=== PATIENT | male | born 1970 | race Caucasian/White ===

== ENCOUNTER 2018-04-20 19:36 | Emergency (ER) | payer OTHER ==
--- NOTE | 2018-04-20 19:48 | ER Report ---
History and Physical Time Seen By MD: 19:47 HPI/ROS CHIEF COMPLAINT: leg pain and swelling HISTORY OF PRESENT ILLNESS: This is a 47 year old male. He is an [id number] operator. He had a lump start on his inner thigh, just above the knee a couple of days ago. Now worsening pain, also with redness and warmth. Extends down the side of his leg into the upper inside calf. Always has some leg swelling bilaterally and wears compression sleeves. He has been pulling the sleeve up to try and help with some compression over this area. Has diabetes with some neuropathy in his feet. No cough, shortness of breath, or chest pain. Allergies: Coded Allergies: Penicillins (Verified Allergy, Intermediate, 04/20/18) BEE STINGS (Verified Allergy, Unknown, 04/20/18) Home Meds Active Scripts Sulfamethoxazole/Trimet 800-160 Mg Tab (BACTRIM DS TABLET) 1 Each Tablet, 1 TAB PO Q12H, #12 TAB 0 Refills Prov:RYLAND WEIR MD 04/20/18 Reported Medications Sitagliptin Phosphate (JANUVIA) 25 Mg Tablet, 25 MG PO QDAY 04/20/18 Pregabalin (LYRICA) 200 Mg Cap, 200 MG PO BID, CAP 04/20/18 Hctz/Bisoprolol (ZIAC 10-6.25 MG TABLET) 1 Ea Tab, 1 EA PO QDAY, TAB 04/20/18 Reviewed Nurses Notes: Yes Constitutional Vital Sign - Last 24 Hours 04/20/18 04/20/18 19:48 20:02 Temp 97.5 Pulse 106 Resp 18 B/P (MAP) 136/92 (107) 136/92 Pulse Ox 94 Physical Exam General Appearance: The patient is alert, has no immediate need for airway protection and no current signs of toxicity. Eyes: Pupils equal and round no injection. ENT: Normal oral mucosa. Moist mucous membranes. Respiratory: Chest is non tender, lungs are clear to auscultation. Cardiac: regular rate and rhythm Neuro: neuropathy in feet, but normal on leg. Musculoskeletal: Has some tenderness over the inner thigh, but no joint or muscle tenderness otherwise. Skin: Redness and warmth and pain with palpation over inner thigh, feeling of fullness, but obvious cyst or fluid pocket noted there. DIFFERENTIAL DIAGNOSIS: After history and physical exam differential diagnosis was considered for swelling and pain in left lower leg, concerning for cellulitis or deep veinous thrombosis. Medical Decision Making Data Points Result Diagram: 04/20/18200104/20/182001 Laboratory Hematology Test 04/20/18 20:02 Red Blood Count 6.15 M/uL (4.00-5.60) Mean Corpuscular Volume 87.0 fL (80.0-96.0) Mean Corpuscular Hemoglobin 29.9 pg (26.0-33.0) Mean Corpuscular Hemoglobin Concent 34.4 g/dL (32.0-36.0) Red Cell Distribution Width 14.4 % (11.5-14.5) Mean Platelet Volume 9.3 fL (7.2-11.1) Neutrophils (%) (Auto) 67.9 % (39.4-72.5) Lymphocytes (%) (Auto) 24.7 % (17.6-49.6) Monocytes (%) (Auto) 5.8 % (4.1-12.4) Eosinophils (%) (Auto) 1.0 % (0.4-6.7) Basophils (%) (Auto) 0.6 % (0.3-1.4) Nucleated RBC Relative Count (auto) 0.0 /100WBC Neutrophils # (Auto) 10.4 K/uL (2.0-7.4) Lymphocytes # (Auto) 3.8 K/uL (1.3-3.6) Monocytes # (Auto) 0.9 K/uL (0.3-1.0) Eosinophils # (Auto) 0.2 K/uL (0.0-0.5) Basophils # (Auto) 0.1 K/uL (0.0-0.1) Nucleated RBC Absolute Count (auto) 0.01 K/uL Sodium Level 139 mmol/L (137-145) Potassium Level 3.8 mmol/L (3.5-5.0) Chloride Level 98 mmol/L (98-107) Carbon Dioxide Level 31 mmol/L (22-30) Blood Urea Nitrogen 14 mg/dl (9-21) Creatinine 0.90 mg/dl (0.66-1.25) Glomerular Filtration Rate Calc > 60.0 Random Glucose 164 mg/dl (75-110) Calcium Level 9.1 mg/dl (8.4-10.2) Total Bilirubin 0.4 mg/dl (0.2-1.3) Aspartate Amino Transf (AST/SGOT) 32 U/L (0-35) Alanine Aminotransferase (ALT/SGPT) 41 U/L (0-56) Alkaline Phosphatase 68 U/L (0-126) Total Protein 7.6 g/dl (6.3-8.2) Albumin 4.1 g/dl (3.5-5.0) Chemistry Test 04/20/18 20:02 White Blood Count 15.3 k/uL (4.5-11.0) Red Blood Count 6.15 M/uL (4.00-5.60) Hemoglobin 18.4 g/dL (14.0-18.0) Hematocrit 53.5 % (42.0-52.0) Mean Corpuscular Volume 87.0 fL (80.0-96.0) Mean Corpuscular Hemoglobin 29.9 pg (26.0-33.0) Mean Corpuscular Hemoglobin Concent 34.4 g/dL (32.0-36.0) Red Cell Distribution Width 14.4 % (11.5-14.5) Platelet Count 255 K/uL (150-450) Mean Platelet Volume 9.3 fL (7.2-11.1) Neutrophils (%) (Auto) 67.9 % (39.4-72.5) Lymphocytes (%) (Auto) 24.7 % (17.6-49.6) Monocytes (%) (Auto) 5.8 % (4.1-12.4) Eosinophils (%) (Auto) 1.0 % (0.4-6.7) Basophils (%) (Auto) 0.6 % (0.3-1.4) Nucleated RBC Relative Count (auto) 0.0 /100WBC Neutrophils # (Auto) 10.4 K/uL (2.0-7.4) Lymphocytes # (Auto) 3.8 K/uL (1.3-3.6) Monocytes # (Auto) 0.9 K/uL (0.3-1.0) Eosinophils # (Auto) 0.2 K/uL (0.0-0.5) Basophils # (Auto) 0.1 K/uL (0.0-0.1) Nucleated RBC Absolute Count (auto) 0.01 K/uL Glomerular Filtration Rate Calc > 60.0 Calcium Level 9.1 mg/dl (8.4-10.2) Total Bilirubin 0.4 mg/dl (0.2-1.3) Aspartate Amino Transf (AST/SGOT) 32 U/L (0-35) Alanine Aminotransferase (ALT/SGPT) 41 U/L (0-56) Alkaline Phosphatase 68 U/L (0-126) Total Protein 7.6 g/dl (6.3-8.2) Albumin 4.1 g/dl (3.5-5.0) EKG/Imaging Imaging EXAMINATION: Left Lower Extremity Venous Ultrasound HISTORY: Left leg swelling, warmth, pain TECHNIQUE: Ultrasound evaluation of the left lower extremity veins was performed with color and spectral Doppler and compression views. COMPARISON: None. FINDINGS: The left common femoral, femoral, proximal deep femoral, popliteal, and segmentally visualized deep calf veins are patent and compressible, without evidence of intraluminal thrombus. The visualized upper greater saphenous vein is patent. IMPRESSION: Normal exam. No evidence of DVT in the left leg. Report Dictated By: Bryson Joyce MD at 04/20/2018 9:02 PM ED Course/Re-evaluation ED Course Ultrasound shows no sign of DVT or abscess or cyst. White count elevated. Discussed these findings with the patient. Appears to be a cellulitis. Will start him on Bactrim, allergic to penicillins. Decision to Disposition Date: Apr 20, 2018 Decision to Disposition Time: 21:00 Depart Departure Latest Vital Signs Vital Signs Date Time Temp Pulse Resp B/P (MAP) Pulse Ox O2 Delivery O2 Flow Rate FiO2 04/20/18 20:02 97.5 106 18 136/92 94 Impression: Primary Impression: Cellulitis Condition: Improved Disposition: HOME OR SELF-CARE New Scripts Sulfamethoxazole/Trimet 800-160 Mg Tab (BACTRIM DS TABLET) 1 Each Tablet 1 TAB PO Q12H, #12 TAB 0 Refills Prov: RYLAND WEIR MD 04/20/18 Patient Instructions: Cellulitis (ED) Additional Instructions: Take the antibiotic Bactrim DS twice a day for 7 days. Take Tylenol or Ibuprofen as needed for pain. Problem Qualifiers Primary Impression: Cellulitis Site of cellulitis: extremity Site of cellulitis of extremity: lower extremity Laterality: left Qualified Codes: L03.116 - Cellulitis of left lower limb [facility] Apr 20, 2018 19:48
[2018-04-20] MEDS ORDERED: ZIA10 PO (19:59)
[2018-04-20] MEDS ORDERED: PRE200PT PO (19:59)
[2018-04-20] MEDS ORDERED: SITA25TA PO (20:01)
[2018-04-20 20:02] VITALS: BP 136/92
[2018-04-20 20:29] LABS: PLATELET COUNT, AUTOMATED 255 K/uL (150-450)
[2018-04-20] MEDS ORDERED: TRIMETHOPRIM/SULFA 160-800 TH 2 TAB/BOTTLE PO ONE (21:00)
[2018-04-20] MEDS ORDERED: SULF-198 PO (21:02)
--- NOTE | 2018-04-20 21:05 | RADIOLOGY IMAGING REPORT ---
FACILITY: [facility] PATIENT NAME: Kyree Rosales : 1970 MR: [id number] V: [id number] EXAM DATE: ORDERING PHYSICIAN: RYLAND WEIR TECHNOLOGIST: Location: [facility] - [place] Patient: Kyree Rosales : 1970 Visit/Account:[id number] Date of Sevice: 04/20/2018 EXAMINATION: Left Lower Extremity Venous Ultrasound HISTORY: Left leg swelling, warmth, pain TECHNIQUE: Ultrasound evaluation of the left lower extremity veins was performed with color and spec tral Doppler and compression views. COMPARISON: None. FINDINGS: The left common femoral, femoral, proximal deep femoral, popliteal, and segmentally visualized deep c dylon veins are patent and compressible, without evidence of intraluminal thrombus. The visualized upp er greater saphenous vein is patent. IMPRESSION: Normal exam. No evidence of DVT in the left leg. Report Dictated By: Bryson Joyce MD at 04/20/2018 9:02 PM Report E-Signed By: Bryson Joyce MD at 04/20/2018 9:03 PM [id number]
== END 2018-04-20 21:15 | disposition home or self-care (01) ==
LOC: ER 19:50
DX: L03.116 Cellulitis of left lower limb (principal)
CPT/HCPCS: 36415; 82040; 82247; 82310; 82374; 82435; 82565; 82947; 84075; 84132; 84155; 84295; 84450; 84460; 84520; 85025; 99284